=== PATIENT | female | born 1955 | race Two or more races ===

== ENCOUNTER → 2023-10-31 | Outpatient (CLI) | payer OTHER | END | disposition home or self-care (01) | LOC: XYW 09:20 | PROVIDERS: ATTEND Physician Assistant | DX: T84.84XA Pain due to internal orthopedic prosthetic devices, implants and grafts, initial encounter (principal); X58.XXXA Exposure to other specified factors, initial encounter; Y93.89 Activity, other specified; Y92.89 Other specified places as the place of occurrence of the external cause; Y99.8 Other external cause status | CPT/HCPCS: 78315; A9503 ==